=== PATIENT | female | born 1980 | race Caucasian/White ===

== ENCOUNTER 2021-01-31 16:33 | Outpatient (REF) | payer OTHER, SELFPAY ==
--- NOTE | ~2021-01-31 | XR_ITS ---
EXAMINATION: XR LUMBOSACRAL SPINE CLINICAL INFORMATION: Low back pain COMPARISON: None TECHNIQUE: Three views of the lumbosacral spine. FINDINGS: No listhesis or compression injury. Vertebral heights and disc heights are fairly well-maintained. The SI joints are grossly patent. No significant degeneration. XR/XR lumbar spine 2-3V IMPRESSION: No bony finding.
== END 2021-01-31 16:34 | disposition home or self-care (01) ==
LOC: HO.HMGCX 16:33
PROVIDERS: Visit Provider Physician Assistant Medical
DX: M54.50 Low back pain, unspecified (principal)
CPT/HCPCS: 72100